=== PATIENT | male | born 1985 | race Caucasian/White ===

== ENCOUNTER 2017-05-30 17:52 | Emergency (ER) | payer OTHER ==
[~2017-05-30] VITALS: Ht 180.3 cm; Wt 77.3 kg
[2017-05-30 18:10] VITALS: BP 144/111
--- NOTE | 2017-05-30 18:24 | NUR ---
PT AA&OX4, RR EVEN/UNLABORED, BL LUNG SOUNDS CLEAR; PT TO LOBBY AWAITING OPEN BED.
--- NOTE | 2017-05-30 19:35 | NUR ---
LEAVE, TO SEE PMD IN MORNING,PATIENT LEFT WITHOUT BEING SEEN BY DR. CHENG. NO FURTHER CARE PROVIDED FOR PATIENT.
--- NOTE | 2017-05-30 21:30 | NUR ---
PATIENT RETURNED BACK , WITH VOMITING.
--- NOTE | 2017-05-30 22:00 | NUR ---
PATIENT LEFT, TO SEE PMD IN AM, PATIENT LEFT WITHOUT BEING SEEN BY DR. CHENG. NO FURTHER CARE PROVIDED FOR PATIENT.
== END 2017-05-30 22:00 | disposition left against medical advice (07) ==
LOC: MED 17:52
DX: R06.02 Shortness of breath (principal); Z53.21 Procedure and treatment not carried out due to patient leaving prior to being seen by health care provider
CPT/HCPCS: 36415; 87804; 99281

== ENCOUNTER 2020-01-31 19:05 | Emergency (ER) | payer MEDICAID, OTHER ==
[~2020-01-31] VITALS: Ht 180.3 cm; Wt 88.5 kg
[2020-01-31 19:20] VITALS: BP 146/101
--- NOTE | 2020-01-31 19:20 | NUR ---
34 Y/O MALE BIBA FOR ABDOMINAL PAIN, AND CRAMPS X 1 DAY. 10/10 PAIN. ALSO C/O NAUSEA, VOMITING X 1 DAY. A&O X4, R/R EQUAL, AND UNLABORED. VSS, TACHYCARDIC. STATES HE BELIEVES HE IS DEHYDRATED. PT DENIES INJURY/ TRAUMA TO ABDOMEN, SOB, COUGH, DIARRHEA. C/O BODY CRAMPS THROUGHOUT BODY, AND CANNOT STAND LAY DOWN, WANTS TO STAND ONLY. SIDE RAIL X1, BED IN LOW POSITION, WILL CONTINUE TO MONITOR. ALLERGY: DEMETRI DENIES PMH
--- NOTE | 2020-01-31 19:20 | NUR ---
PT AMBUALTED TO BED 7 WITH STEADY GAIT.
[2020-01-31] MEDS: NACL 0.9% 1,000 ML IV ONE ×2 (19:52→21:05)
[2020-01-31] MEDS: LORazepam 2 MG/ML VIAL IVP ONE (19:53)
[2020-01-31] MEDS: ONDANSETRON 4 MG/2 ML VIAL IVP ONE (19:54)
[2020-01-31 20:00] LABS: HEMATOCRIT 52.7 % (36-52); HEMOGLOBIN 18.2 g/dL (12.0-18.0); MEAN CORPUSCULAR HEMOGLOBIN 33 pg (27-31); MEAN CORPUSCULAR HGB CONC 35 g/dL (33-37); MEAN CORPUSCULAR VOLUME 94.7 fL (80-94); PLATELET COUNT (AUTO) 415 K/uL (140-450); RED BLOOD CELL COUNT(AUTO) 5.56 MIL/uL (4.20-6.10); RED CELL DISTRIBUTION WIDTH 13.2 % (11.6-13.7); WHITE BLOOD COUNT (AUTO) 17.3 K/uL (4.8-10.8)
[2020-01-31 20:16] LABS: LYMPHOCYTES % (MANUAL) 18 % (20-46); MONOCYTES % (MANUAL) 6 % (5-12)
[2020-01-31 20:18] LABS: ALBUMIN 6.2 g/dL (3.4-5.0); ANION GAP 30.4 (8-16); CARBON DIOXIDE 15.9 mmol/L (21-32); POTASSIUM 4.3 mmol/L (3.5-5.1); TOTAL BILIRUBIN 1.3 mg/dL (0.0-1.0)
[2020-01-31 20:36] LABS: CREATININE 4.2 mg/dL (0.6-1.3)
--- NOTE | 2020-01-31 20:37 | NUR ---
RECIVED CRITICAL LAB REPORT FORM ANUPAM - CREATINE 4.2. DIETER MADE AWARE.
[2020-01-31 21:11] LABS: CKMB RELATIVE INDEX 0.5 (0.0-2.5); CREATINE KINASE MB 2.1 ng/mL (0-3.6)
[2020-01-31] MEDS ORDERED: HYDROcodone/APAP 7.5/325 MG 1 TAB PO PRN (21:25)
[2020-01-31] MEDS ORDERED: ONDANSETRON 4 MG/2 ML VIAL IM/IVP PRN (21:25)
[2020-01-31] MEDS ORDERED: ZOLPIDEM 5 MG TAB PO PRN (21:25)
[2020-01-31] MEDS ORDERED: guaiFENesin DM 200/20 MG-10 ML 10 ML UDC PO PRN (21:25)
[2020-01-31] MEDS ORDERED: POTASSIUM CHLORIDE 10 MEQ TABER PO PRN (21:25)
[2020-01-31] MEDS ORDERED: DOCUSATE SODIUM 100 MG GELCAP PO PRN (21:25)
[2020-01-31] MEDS ORDERED: ACETAMINOPHEN 325 MG TAB PO PRN (21:25)
[2020-01-31] MEDS ORDERED: NACL 0.9% 1,000 ML IV SCH (21:25)
[2020-01-31 21:38] LABS: MAGNESIUM 2.6 mg/dL (1.8-2.4); PHOSPHORUS 4.4 mg/dL (2.5-4.9)
[2020-01-31 21:43] LABS: BARBITURATE, URINE NEGATIVE ng/ml (NEG <=200); BENZODIAZEPINE, URINE NEGATIVE ng/mL (NEG <=200); CANNABINOID, URINE POSITIVE ng/mL (NEG <=50); COCAINE, URINE NEGATIVE ng/mL (NEG <=300); OPIATE, URINE NEGATIVE ng/mL (NEG <=2000); PHENCYCLIDINE SCREEN,URINE NEGATIVE ng/mL (NEG <=25)
[2020-01-31 21:50] LABS: APPEARANCE,URINE CLEAR (CLEAR); BILIRUBIN,URINE 2+ (NEGATIVE); BLOOD, URINE 2+ (NEGATIVE); COLOR,URINE YELLOW (YELLOW); LEUKOCYTE ESTERASE ,URINE NEGATIVE (NEGATIVE); NITRITE, URINE NEGATIVE (NEGATIVE); PH,URINE 5.5 (5.0-9.0); UGLUCOSE NEGATIVE (NEGATIVE)
[2020-01-31 22:16] LABS: PROTHROMBIN TIME 10.4 secs (10.8-13.4)
[2020-01-31 22:17] LABS: WBC,URINE 0-5 /HPF (0-5)
[2020-01-31 22:18] LABS: FINE GRANULAR CASTS,URINE 0-10 /LPF (None Seen); URINE AMORPHOUS URATE 2+ /HPF (None Seen)
[2020-01-31 22:20] VITALS: BP 120/64
--- NOTE | 2020-01-31 22:20 | NUR ---
Patient does not wish to proceed with medical care recommended by DIETER GATES. Patient given information related to possible complications, up to and including , which could occur as a result of leaving hospital at this time. Patient verbalizes understanding of risks involved leaving against medical advice. Patient has signed AMA form.
[2020-01-31 22:33] LABS: CHOL/HDL RATIO 2.1 (1-4.5); FREE T4 (FREE THYROXINE) 1.62 ng/dL (0.76-1.46); THYROID STIMULATING HORMONE 6.53 uIU/mL (0.34-3.74)
[2020-02-01] MEDS ORDERED: PANTOPRAZOLE 40 MG TABEC PO SCH (09:00)
[2020-02-02 13:43] LABS: T4 (THYROXINE) 12.6 ug/dL (4.5 - 12.0)
[2020-02-03 13:45] LABS: BASOPHILS # (AUTO) 0.1 K/uL (0.00-0.22); EOSINOPHILS # (AUTO) 0.2 K/uL (0-0.4); EOSINOPHILS % (AUTO) 3.2 % (0.0-4.0); HEMATOCRIT 41.3 % (36-52); HEMOGLOBIN 13.6 g/dL (12.0-18.0); LYMPHOCYTES # (AUTO) 1.9 K/uL (2.0-11.5); LYMPHOCYTES % (AUTO) 28.6 % (20.5-51.1); MEAN CORPUSCULAR HEMOGLOBIN 32 pg (27-31); MEAN CORPUSCULAR HGB CONC 33 g/dL (33-37); MEAN CORPUSCULAR VOLUME 97.2 fL (80-94); MONOCYTES # (AUTO) 0.8 K/uL (0.8-1.0); MONOCYTES % (AUTO) 11.3 % (1.7-9.3); NEUTROPHILS # (AUTO) 3.8 K/uL (1.8-7.7); NEUTROPHILS % (AUTO) 55.9 % (42.2-75.2); PLATELET COUNT (AUTO) 257 K/uL (140-450); RED BLOOD CELL COUNT(AUTO) 4.25 MIL/uL (4.20-6.10); RED CELL DISTRIBUTION WIDTH 12.9 % (11.6-13.7); WHITE BLOOD COUNT (AUTO) 6.7 K/uL (4.8-10.8)
== END 2020-01-31 22:11 | disposition left against medical advice (07) ==
LOC: MED 19:05 → UNDOADMIN 21:20 → MTU 21:20 → MED 22:11
DX: M62.82 Rhabdomyolysis (principal); E86.0 Dehydration; N19 Unspecified kidney failure; F17.210 Nicotine dependence, cigarettes, uncomplicated; Z91.018 Allergy to other foods
CPT/HCPCS: 36415; 36600; 71045; 80053; 80061; 80305; 81001; 81002; 82150; 82550; 82553; 82803; 83036; 83690; 83735; 83880; 84100; 84436; 84439; 84443; 84479; 84484; 85025; 85610; 85730; 87086; 96361; 96374; 96375; 99284; J2060; J2405; J7030; Q0092; 96376; J0696; J7060

== ENCOUNTER 2020-02-01 12:22 | Emergency (ER) | payer MEDICAID ==
[~2020-02-01] VITALS: Ht 180.3 cm; Wt 83.9 kg
[2020-02-01 12:30] VITALS: BP 151/105
--- NOTE | 2020-02-01 12:37 | NUR ---
34 y/o male presents to ED for follow up after leaving [facility] AMA last night. Pt states he was having muscle cramps and body pain yesterday. Denies pain at this time. Pt states he feels dehydrated and has generalized weakness. Awake and alert positioned for comfort. VSS
[2020-02-01] MEDS ORDERED: NACL 0.9% 500 ML IV SCH (13:11)
--- NOTE | 2020-02-01 13:13 | NUR ---
Patient ambulated to restroom to provide UA.
[2020-02-01 13:31] LABS: BASOPHILS % (AUTO) 0.4 % (0.0-2.0); EOSINOPHILS # (AUTO) 0.1 K/uL (0-0.4); HEMATOCRIT 43.3 % (36-52); HEMOGLOBIN 14.9 g/dL (12.0-18.0); LYMPHOCYTES # (AUTO) 2.8 K/uL (2.0-11.5); LYMPHOCYTES % (AUTO) 29.4 % (20.5-51.1); MEAN CORPUSCULAR HEMOGLOBIN 33 pg (27-31); MEAN CORPUSCULAR HGB CONC 34 g/dL (33-37); MEAN CORPUSCULAR VOLUME 94.8 fL (80-94); MONOCYTES # (AUTO) 1.1 K/uL (0.8-1.0); MONOCYTES % (AUTO) 12.2 % (1.7-9.3); NEUTROPHILS # (AUTO) 5.3 K/uL (1.8-7.7); PLATELET COUNT (AUTO) 306 K/uL (140-450); RED BLOOD CELL COUNT(AUTO) 4.57 MIL/uL (4.20-6.10); RED CELL DISTRIBUTION WIDTH 12.8 % (11.6-13.7); WHITE BLOOD COUNT (AUTO) 9.4 K/uL (4.8-10.8)
--- NOTE | 2020-02-01 13:38 | NUR ---
X-Ray at bedside.
--- NOTE | 2020-02-01 13:40 | NUR ---
Ultrasound at bedside
[2020-02-01 13:47] LABS: ALBUMIN 4.3 g/dL (3.4-5.0); ANION GAP 16.2 (8-16); CARBON DIOXIDE 22.5 mmol/L (21-32); CREATININE 1.6 mg/dL (0.6-1.3); POTASSIUM 3.7 mmol/L (3.5-5.1)
[2020-02-01 13:51] LABS: APPEARANCE,URINE CLEAR (CLEAR); BILIRUBIN,URINE NEGATIVE (NEGATIVE); BLOOD, URINE NEGATIVE (NEGATIVE); COLOR,URINE YELLOW (YELLOW); LEUKOCYTE ESTERASE ,URINE NEGATIVE (NEGATIVE); NITRITE, URINE NEGATIVE (NEGATIVE); UGLUCOSE NEGATIVE (NEGATIVE)
[2020-02-01 13:54] LABS: PROTHROMBIN TIME 10.4 secs (10.8-13.4)
[2020-02-01] MEDS ORDERED: NACL 0.9% 500 ML IV ONE (14:00)
--- NOTE | 2020-02-01 14:08 | NUR ---
second 500ml bolus of nacl started
[2020-02-01 14:44] VITALS: BP 144/99
--- NOTE | 2020-02-01 14:44 | NUR ---
Patient discharged with v/s stable. Written and verbal after care instructions given and explained. Patient verbalized understanding. Ambulatory with steady gait. All questions addressed prior to discharge. Advised to follow up with PMD.
== END 2020-02-01 14:44 | disposition home or self-care (01) ==
LOC: MED 12:22
DX: N28.89 Other specified disorders of kidney and ureter (principal); F17.210 Nicotine dependence, cigarettes, uncomplicated; F12.10 Cannabis abuse, uncomplicated; K29.70 Gastritis, unspecified, without bleeding; Z91.02 Food additives allergy status
CPT/HCPCS: 36415; 71045; 76770; 80053; 81003; 83605; 83874; 83880; 84484; 85025; 85610; 85730; 87040; 87086; 93005; 96360; 96361; 99285; J7030; Q0092

== ENCOUNTER 2020-02-03 09:01 | Emergency (ER) | payer MEDICAID ==
[~2020-02-03] VITALS: Ht 180.3 cm; Wt 83.9 kg
[2020-02-03 09:02] VITALS: BP 143/92
--- NOTE | 2020-02-03 09:10 | NUR ---
pt ambulated to room 7
--- NOTE | 2020-02-03 09:13 | NUR ---
dr mcmahon at bedside evaluating pt.
--- NOTE | 2020-02-03 09:20 | NUR ---
C/O RIGHT BACK PAIN X 4 MONTHS. DENIES DYSURIA. SEEN HERE 02/01/20 FOR KIDNEY DISEASE,PT AOX4 AFIBRILE , AMBULATORY WITH STEADY GAIT , PINK PALPEBRAL CONJUNCTIVE , ANICTERIC SCLERA , SCE, FLAT SOFT ABDOMEN . MED HX: FATTY LIVER, GASTRITIS
--- NOTE | 2020-02-03 09:26 | NUR ---
labs at bedside
--- NOTE | 2020-02-03 09:44 | NUR ---
pt ambulated outside ED to his car to get something pt stated , ask permission with charge nurse louis .
--- NOTE | 2020-02-03 09:55 | NUR ---
pt back in room.
[2020-02-03 10:16] LABS: ALBUMIN 3.9 g/dL (3.4-5.0); CARBON DIOXIDE 26.1 mmol/L (21-32); CREATININE 0.8 mg/dL (0.6-1.3); PHOSPHORUS 2.6 mg/dL (2.5-4.9); POTASSIUM 4.1 mmol/L (3.5-5.1)
--- NOTE | 2020-02-03 10:25 | NUR ---
dr mcmahon at bedside reevaluating pt.
[2020-02-03 10:29] VITALS: BP 143/89
== END 2020-02-03 10:30 | disposition home or self-care (01) ==
LOC: MED 09:01
DX: N17.9 Acute kidney failure, unspecified (principal); F17.200 Nicotine dependence, unspecified, uncomplicated; Z00.00 Encounter for general adult medical examination without abnormal findings; Z91.018 Allergy to other foods; Z71.6 Tobacco abuse counseling
CPT/HCPCS: 36415; 82040; 82435; 82565; 82947; 84100; 84132; 84295; 84520; 99283

== ENCOUNTER 2020-12-03 12:26 | Emergency (ER) | payer SELFPAY ==
[~2020-12-03] VITALS: Ht 180.3 cm; Wt 85.3 kg
[2020-12-03 12:30] VITALS: BP 162/97
[2020-12-03] MEDS ORDERED: ONDANSETRON 4 MG ODT PO ONE (13:10)
[2020-12-03] MEDS ORDERED: KETOROLAC 30 MG/ML VIAL IM ONE (13:10)
[2020-12-03 13:29] VITALS: BP 162/97
[2020-12-03] MEDS ORDERED: ATA25 PO (20:30)
== END 2020-12-03 13:30 | disposition home or self-care (01) ==
LOC: MED 12:26
DX: R07.9 Chest pain, unspecified (principal); F41.1 Generalized anxiety disorder; F17.210 Nicotine dependence, cigarettes, uncomplicated; Z91.018 Allergy to other foods
CPT/HCPCS: 81002; 93005; 96372; 99283; J1885; Q0162

== ENCOUNTER 2020-12-03 18:29 | Emergency (ER) | payer SELFPAY ==
[~2020-12-03] VITALS: Ht 180.3 cm; Wt 85.3 kg
[2020-12-03 18:40] VITALS: BP 150/112
--- NOTE | 2020-12-03 19:23 | NUR ---
AMBULATORY TO BED
--- NOTE | 2020-12-03 19:26 | NUR ---
ekg performed at bedside. ekg reads sinus rhythm @ 67
[2020-12-03 19:30] LABS: BASOPHILS % (AUTO) 0.4 % (0.0-2.0); EOSINOPHILS # (AUTO) 0.1 K/uL (0-0.4); EOSINOPHILS % (AUTO) 0.7 % (0.0-4.0); HEMATOCRIT 43.6 % (36-52); LYMPHOCYTES % (AUTO) 23.9 % (20.5-51.1); MEAN CORPUSCULAR HEMOGLOBIN 33 pg (27-31); MEAN CORPUSCULAR HGB CONC 34 g/dL (33-37); MEAN CORPUSCULAR VOLUME 94.7 fL (80-94); MONOCYTES # (AUTO) 0.6 K/uL (0.8-1.0); MONOCYTES % (AUTO) 7.5 % (1.7-9.3); NEUTROPHILS # (AUTO) 5.6 K/uL (1.8-7.7); NEUTROPHILS % (AUTO) 67.5 % (42.2-75.2); PLATELET COUNT (AUTO) 315 K/uL (140-450); RED CELL DISTRIBUTION WIDTH 12.4 % (11.6-13.7); WHITE BLOOD COUNT (AUTO) 8.3 K/uL (4.8-10.8)
[2020-12-03 19:49] LABS: ALBUMIN 4.6 g/dL (3.4-5.0); ANION GAP 13.4 (8-16); CARBON DIOXIDE 27.3 mmol/L (21-32); POTASSIUM 3.7 mmol/L (3.5-5.1); TOTAL BILIRUBIN 1.1 mg/dL (0.0-1.0)
[2020-12-03] MEDS ORDERED: ATA25 PO (20:30)
[2020-12-03] MEDS ORDERED: KETOROLAC 30 MG/ML VIAL IM ONE (20:35)
[2020-12-03] MEDS ORDERED: HYDROXYZINE HYDROCHLORIDE 25 MG TAB ONE (20:47)
--- NOTE | 2020-12-03 20:49 | NUR ---
PT MOVED TO CHAIR C
[2020-12-03 21:00] VITALS: BP 150/112
--- NOTE | 2020-12-03 21:00 | NUR ---
Patient discharged with v/s stable. Written and verbal after care instructions given and explained. Patient alert, oriented and verbalized understanding of instructions. Ambulatory with steady gait. All questions addressed prior to discharge. ID band removed. Patient advised to follow up with PMD. Rx of ATARAX HCL given. Patient educated on indication of medication including possible reaction and side effects. Opportunity to ask questions provided and answered. Patient reports he will be walking home,lives next to the hospital.
[2020-12-04] MEDS ORDERED: HYDROXYZINE HYDROCHLORIDE 25 MG TAB PO SCH (09:00)
== END 2020-12-03 21:00 | disposition home or self-care (01) ==
LOC: MED 18:29
DX: F41.9 Anxiety disorder, unspecified (principal); F17.210 Nicotine dependence, cigarettes, uncomplicated; F12.10 Cannabis abuse, uncomplicated; Z91.018 Allergy to other foods
CPT/HCPCS: 36415; 71045; 80053; 84484; 85025; 93005; 96372; 99285; J1885

== ENCOUNTER 2021-08-07 19:52 | Emergency (ER) | payer MEDICAID ==
[~2021-08-07] VITALS: Ht 88.9 cm; Wt 83.9 kg
[~2021-08-07 19:52] MED LIST: ATA25 PO
--- NOTE | 2021-08-07 20:15 | NUR ---
called to triage, no answer
[2021-08-07 20:35] VITALS: BP 160/127
--- NOTE | 2021-08-07 22:35 | NUR ---
VS RECHECKED. PT NOW ADMITS TO METH USE AND ETOH USE. LAST DRINK AT 1000
--- NOTE | 2021-08-07 22:58 | NUR ---
PT AMBULATED TO BED 01.
[2021-08-07] MEDS ORDERED: LORazepam 1 MG TAB PO ONE (23:05)
[2021-08-07] MEDS ORDERED: NACL 0.9% 1,000 ML IV ONE (23:05)
[2021-08-07] MEDS ORDERED: LORazepam 2 MG/ML VIAL IVP ONE (23:05)
--- NOTE | 2021-08-07 23:06 | NUR ---
Patient BIB by family/friend from home. C/O Anxiety x today. Patient reported, had anxiety today, drinking alcohol x 3 days and smoke "weed" x today. A/O,X4, dizziness, no pain, place patient on manager monitoring and pulse ox.
[2021-08-07 23:27] LABS: BASOPHILS # (AUTO) 0.4 K/uL (0.00-0.22); BASOPHILS % (AUTO) 4.2 % (0.0-2.0); EOSINOPHILS # (AUTO) 0.1 K/uL (0-0.4); EOSINOPHILS % (AUTO) 1.4 % (0.0-4.0); HEMATOCRIT 47.4 % (36-52); HEMOGLOBIN 16.5 g/dL (12.0-18.0); LYMPHOCYTES # (AUTO) 2.2 K/uL (2.0-11.5); LYMPHOCYTES % (AUTO) 24.7 % (20.5-51.1); MEAN CORPUSCULAR HEMOGLOBIN 32 pg (27-31); MEAN CORPUSCULAR HGB CONC 35 g/dL (33-37); MEAN CORPUSCULAR VOLUME 93.2 fL (80-94); MONOCYTES # (AUTO) 0.9 K/uL (0.8-1.0); MONOCYTES % (AUTO) 9.6 % (1.7-9.3); NEUTROPHILS # (AUTO) 5.4 K/uL (1.8-7.7); NEUTROPHILS % (AUTO) 60.1 % (42.2-75.2); PLATELET COUNT (AUTO) 341 K/uL (140-450); RED BLOOD CELL COUNT(AUTO) 5.09 MIL/uL (4.20-6.10); RED CELL DISTRIBUTION WIDTH 13.4 % (11.6-13.7)
[2021-08-07 23:39] LABS: ALBUMIN 4.4 g/dL (3.4-5.0); ANION GAP 17.1 (8-16); CARBON DIOXIDE 22.8 mmol/L (21-32); CREATININE 0.9 mg/dL (0.6-1.3); POTASSIUM 3.9 mmol/L (3.5-5.1); TOTAL BILIRUBIN 0.9 mg/dL (0.0-1.0)
--- NOTE | 2021-08-07 23:56 | NUR ---
COVID-19 (rapid) swabs collected and sent to lab.
[2021-08-08 00:59] LABS: BARBITURATE, URINE NEGATIVE ng/ml (NEG <=200); BENZODIAZEPINE, URINE POSITIVE ng/mL (NEG <=200); CANNABINOID, URINE POSITIVE ng/mL (NEG <=50); COCAINE, URINE NEGATIVE ng/mL (NEG <=300); OPIATE, URINE NEGATIVE ng/mL (NEG <=2000); PHENCYCLIDINE SCREEN,URINE NEGATIVE ng/mL (NEG <=25)
--- NOTE | 2021-08-08 01:07 | NUR ---
Patient appears to be resting comfortably in bed. Vital Signs within normal limits. Respirations even and unlabored.
--- NOTE | 2021-08-08 01:50 | NUR ---
Re-check BP 171/101- Dr. Mckinnon notified.
[2021-08-08 02:10] VITALS: BP 171/101
== END 2021-08-08 02:10 | disposition home or self-care (01) ==
LOC: MED 19:52
DX: F15.129 Other stimulant abuse with intoxication, unspecified (principal); Z20.822 Contact with and (suspected) exposure to COVID-19; F10.10 Alcohol abuse, uncomplicated; F41.9 Anxiety disorder, unspecified; Z91.018 Allergy to other foods; Z79.899 Other long term (current) drug therapy; Y90.0 Blood alcohol level of less than 20 mg/100 ml
CPT/HCPCS: 36415; 80053; 80305; 84484; 85025; 87426; 93005; 96361; 96374; 99285; G0482; J2060; J7030

== ENCOUNTER 2021-08-21 08:22 | Emergency (ER) | payer MEDICAID ==
[~2021-08-21] VITALS: Ht 180.3 cm; Wt 86.2 kg
[2021-08-21 08:32] VITALS: BP 160/98
--- NOTE | 2021-08-21 08:45 | NUR ---
35 Y/O M AMBULATED TO BED 3 WITH STEADY GAIT, C/O ANXIETY AFTER DDRINKING FOR THE PAST 3 DAYS, LAST DRINK LAST NIGHT AT 2200. NKDA PMH: ALLERGIES FOOD: AVOCADO
--- NOTE | 2021-08-21 09:06 | NUR ---
DR WATSON AT BEDSIDE FOR MSE
[2021-08-21] MEDS ORDERED: diazePAM 5 MG TAB PO ONE (09:10)
[2021-08-21] MEDS ORDERED: HYDR-635 PO (10:00)
[2021-08-21 10:05] VITALS: BP 160/100
--- NOTE | 2021-08-21 10:05 | NUR ---
Patient discharged with v/s stable. Written and verbal after care instructions given and explained. Patient alert, oriented and verbalized understanding of instructions. Ambulatory with steady gait. All questions addressed prior to discharge. ID band removed. Patient advised to follow up with PMD. Rx of HYDROXYZINE given. Patient educated on indication of medication including possible reaction and side effects. Opportunity to ask questions provided and answered.
== END 2021-08-21 10:05 | disposition home or self-care (01) ==
LOC: MED 08:22
DX: F10.239 Alcohol dependence with withdrawal, unspecified (principal); F41.1 Generalized anxiety disorder; F12.90 Cannabis use, unspecified, uncomplicated; Z79.899 Other long term (current) drug therapy; Z91.018 Allergy to other foods
CPT/HCPCS: 93005; 99283

== ENCOUNTER 2021-10-25 16:09 | Emergency (ER) | payer MEDICAID, OTHER ==
[~2021-10-25] VITALS: Ht 180.3 cm; Wt 89.9 kg
[~2021-10-25 16:09] MED LIST changes: +HYDR-635 PO
[2021-10-25 16:12] VITALS: BP 141/78
--- NOTE | 2021-10-25 16:20 | NUR ---
Anup salinas in [facility] - 10/25/21 at 1625 by MED1 PT W/C TO BED 4.
--- NOTE | 2021-10-25 16:25 | NUR ---
PT W/C ASSISTED TO BED 4.
--- NOTE | 2021-10-25 16:28 | NUR ---
35 Y/O MALE C/O LEFT KNEE PAIN 01/07 DESCRIBES ACHING S/P FALL X 2 DAYS AT HOME. PT STATES HE WAS AT HOME WORKING AND FELL. DENIES HEAD INJURY. DENIES LOC. DENIES FEVER/CHILLS. DENIES N/V/D. DENIES PMH NKA
[2021-10-25] MEDS ORDERED: KETOROLAC 30 MG/ML VIAL IM ONE (16:30)
--- NOTE | 2021-10-25 16:31 | NUR ---
MANAGER ACTIVITIES AT PT BEDSIDE.
[2021-10-25] MEDS ORDERED: IBUP-2213 PO (17:22)
[2021-10-25] MEDS ORDERED: HYDR-5080 PO (17:22)
--- NOTE | 2021-10-25 17:50 | NUR ---
Patient discharged with v/s stable. Written and verbal after care instructions given FOR RICE THERAPY, CONTUSION, KNEE SPRAIN, AND KNEE IMMOBILIZER and explained. Patient alert, oriented and verbalized understanding of instructions. Ambulatory with steady gait. All questions addressed prior to discharge. ID band removed. Patient advised to follow up with PMD. Rx of NORCO AND IBUPROFEN given. Patient educated on indication of medication including possible reaction and side effects. Opportunity to ask questions provided and answered.
--- NOTE | 2021-10-25 17:50 | NUR ---
PT PLACED IN LEFT KNEE ORTHO-IMMOBILIZOR, CMS WNL BEFORE AND AFTER AND PT STATED THAT THEY TOLERATED KNEE BRACE WELL. PT ALSO GIVEN CRUTCHES THAT WERE ADJUSTED TO PT'S SIZE AND HEIGHT, PT STATED THAT THEY ALREADY KNOW HOW TO USE CRUTCHES AND SHOWED PROPER DEMONSTRATION ON HOW TO US THEM. PT STATED THEY FELT COMFORTABLE WHILE USING CRUTCHES AND HAD NO FURTHER QUESTIONS. DIETER AND RN NOTIFIED.
== END 2021-10-25 17:50 | disposition home or self-care (01) ==
LOC: MED 16:09
DX: S83.92XA Sprain of unspecified site of left knee, initial encounter (principal); F17.200 Nicotine dependence, unspecified, uncomplicated; Z72.89 Other problems related to lifestyle; W18.30XA Fall on same level, unspecified, initial encounter; Y93.89 Activity, other specified; Y92.89 Other specified places as the place of occurrence of the external cause; Y99.8 Other external cause status
CPT/HCPCS: 29505; 73562; 96372; 99283; J1885; 99284

== ENCOUNTER 2021-11-02 10:40 | Emergency (ER) | payer OTHER ==
[~2021-11-02] VITALS: Ht 180.3 cm; Wt 86.2 kg
[~2021-11-02 10:40] MED LIST changes: +HYDR-5080 PO; +IBUP-2213 PO
[2021-11-02 10:47] VITALS: BP 134/87
--- NOTE | 2021-11-02 10:47 | NUR ---
Patient ambulated with steady gait to bed 8.
[2021-11-02] MEDS ORDERED: LORazepam 2 MG/ML VIAL IVP ONE (11:00)
--- NOTE | 2021-11-02 11:20 | NUR ---
35 Y/O MALE BIB SELF C/O OF HIGH ANXIETY, SEEN APPEARANCE IN [employer],CLOTHES UNKEMPT AND PANTS WITH PAINT OVER HIM. STATED THAT HE WAS DRINKING 18 BEERS A DAY FOR 4-5 DAYS AND DECIDED TO STOP. NOW FEELING LIKE HE'S OUT OF BREATH AND PACING BACK AND FORTH. NKYanelis PMH:DENIED
[2021-11-02 11:28] LABS: BASOPHILS % (AUTO) 0.7 % (0.0-2.0); EOSINOPHILS # (AUTO) 0.2 K/uL (0-0.4); HEMOGLOBIN 14.9 g/dL (12.0-18.0); LYMPHOCYTES # (AUTO) 1.9 K/uL (2.0-11.5); LYMPHOCYTES % (AUTO) 35.2 % (20.5-51.1); MEAN CORPUSCULAR HEMOGLOBIN 32 pg (27-31); MEAN CORPUSCULAR HGB CONC 34 g/dL (33-37); MEAN CORPUSCULAR VOLUME 94.4 fL (80-94); MONOCYTES # (AUTO) 0.4 K/uL (0.8-1.0); MONOCYTES % (AUTO) 7.1 % (1.7-9.3); PLATELET COUNT (AUTO) 341 K/uL (140-450); RED BLOOD CELL COUNT(AUTO) 4.65 MIL/uL (4.20-6.10); RED CELL DISTRIBUTION WIDTH 13.3 % (11.6-13.7); WHITE BLOOD COUNT (AUTO) 5.5 K/uL (4.8-10.8)
[2021-11-02 11:59] LABS: CARBON DIOXIDE 24.5 mmol/L (21-32); CREATININE 0.8 mg/dL (0.6-1.3); TOTAL BILIRUBIN 0.5 mg/dL (0.0-1.0)
[2021-11-02 12:04] LABS: ANION GAP 14.7 (8-16); POTASSIUM 4.2 mmol/L (3.5-5.1)
[2021-11-02] MEDS ORDERED: LIB25 PO (12:55)
[2021-11-02] MEDS ORDERED: chlordiazePOXIDE 25 MG CAP PO SCH (13:00)
[2021-11-02 13:08] VITALS: BP 146/91
--- NOTE | 2021-11-02 13:11 | NUR ---
Patient discharged with v/s stable. Written and verbal after care instructions given and explained. Patient alert, oriented and verbalized understanding of instructions. Ambulatory with steady gait. All questions addressed prior to discharge. ID band removed. Patient advised to follow up with PMD. Rx of LIBRIUM given. Patient educated on indication of medication including possible reaction and side effects. Opportunity to ask questions provided and answered.
== END 2021-11-02 13:11 | disposition home or self-care (01) ==
LOC: MED 10:40
DX: F10.239 Alcohol dependence with withdrawal, unspecified (principal); Y90.9 Presence of alcohol in blood, level not specified
CPT/HCPCS: 36415; 80053; 83690; 85025; 96374; 99283; J2060

== ENCOUNTER 2022-02-12 16:27 | Emergency (ER) | payer OTHER ==
[~2022-02-12] VITALS: Ht 180.3 cm; Wt 83.9 kg
[~2022-02-12 16:27] MED LIST changes: +LIB25 PO
[2022-02-12 16:48] VITALS: BP 158/120
--- NOTE | 2022-02-12 17:00 | NUR ---
PT AMB TO BED 5.
--- NOTE | 2022-02-12 17:05 | NUR ---
UA SENT TO LAB
--- NOTE | 2022-02-12 17:12 | NUR ---
36 Y/O M BIB SELF C/O CHEST PAIN, SHAKING X 2 DAYS. PT USED METH 2 DAYS AGO & DRINKING X TODAY. NKA PMH: DRUG ABUSED, ALCOHOLIC, ANXIETY
[2022-02-12] MEDS ORDERED: OMEP40EC24 PO (18:02)
[2022-02-12] MEDS ORDERED: ATA25 PO (18:02)
[2022-02-12] MEDS ORDERED: LORazepam 1 MG TAB ONE (18:08)
[2022-02-12] MEDS ORDERED: LORazepam 1 MG TAB PO ONE (18:10)
[2022-02-12 18:18] VITALS: BP 154/104
--- NOTE | 2022-02-12 18:19 | NUR ---
Patient discharged with v/s stable. Written and verbal after care instructions given and explained. Patient alert, oriented and verbalized understanding of instructions. Ambulatory with steady gait. All questions addressed prior to discharge. ID band removed. Patient advised to follow up with PMD. Rx of HYDROXYZINE HYDROCHLORIDE, OMEPRAZOLE given. Opportunity to ask questions provided and answered.
== END 2022-02-12 18:19 | disposition home or self-care (01) ==
LOC: MED 16:27
DX: F41.9 Anxiety disorder, unspecified (principal); R07.9 Chest pain, unspecified; F12.10 Cannabis abuse, uncomplicated; F15.10 Other stimulant abuse, uncomplicated; Z72.89 Other problems related to lifestyle
CPT/HCPCS: 93005; 99283

== ENCOUNTER 2022-03-17 14:22 | Emergency (ER) | payer OTHER ==
[~2022-03-17] VITALS: Ht 180.3 cm; Wt 86.2 kg
[~2022-03-17 14:22] MED LIST changes: +OMEP40EC24 PO
[2022-03-17 14:35] VITALS: BP 159/114
--- NOTE | 2022-03-17 14:42 | NUR ---
PT AMB TO BED 8.
[2022-03-17] MEDS ORDERED: diazePAM 5 MG TAB PO ONE ×2 (15:10→16:35)
--- NOTE | 2022-03-17 15:41 | NUR ---
36 y/o male bib self, c/o etoh withdrawals that started today around 0400. states he has s/s of moderate and persistent shakiness, anxious, and paranoid with associated nausea, vomiting, and difficulty breathing. pt states he has been trying to quit drinking, but has been relapsed for 4 days. a&o x4 with even and steady gait. patient positioned for comfort. hob elevated. bed down. ermd made aware of pt. pmh: heavy etoh abuse allergy: divalproex sodium, quetiapine med: denies
[2022-03-17] MEDS ORDERED: diazePAM 5 MG TAB ONE (17:37)
--- NOTE | 2022-03-17 17:47 | NUR ---
pt states he is feeling decreased anxiety and nausea. pt resting in bed at this time.
[2022-03-17 18:55] VITALS: BP 136/87
== END 2022-03-17 18:55 | disposition home or self-care (01) ==
LOC: MED 14:22
DX: F10.239 Alcohol dependence with withdrawal, unspecified (principal); F41.9 Anxiety disorder, unspecified; Z79.899 Other long term (current) drug therapy
CPT/HCPCS: 81002; 99283

== ENCOUNTER 2022-04-26 12:37 | Emergency (ER) | payer OTHER ==
[~2022-04-26] VITALS: Ht 180.3 cm; Wt 88.5 kg
[2022-04-26 12:44] VITALS: BP 140/94
--- NOTE | 2022-04-26 13:00 | NUR ---
36/M WALKED IN C/O LOW BACK PAIN ONSET TODAY S/P RIDING SCOOTER AT A PARK. DENIES FALL OR TRAUMA TO BACK. DESCRIBES PAIN SHARP. PMH: DENIES
[2022-04-26] MEDS ORDERED: KETOROLAC 30 MG/ML VIAL IM ONE (14:55)
[2022-04-26] MEDS ORDERED: IBUP-2213 PO (15:33)
[2022-04-26] MEDS ORDERED: METH-1681 PO (15:33)
[2022-04-26] MEDS ORDERED: KETOROLAC 30 MG/ML VIAL ONE (16:27)
[2022-04-26 16:30] VITALS: BP 132/82
== END 2022-04-26 16:30 | disposition home or self-care (01) ==
LOC: MED 12:37
DX: S39.012A Strain of muscle, fascia and tendon of lower back, initial encounter (principal); Z79.899 Other long term (current) drug therapy; Z79.1 Long term (current) use of non-steroidal anti-inflammatories (NSAID); Z79.891 Long term (current) use of opiate analgesic; X58.XXXA Exposure to other specified factors, initial encounter; Y92.89 Other specified places as the place of occurrence of the external cause; Y93.89 Activity, other specified; Y99.8 Other external cause status
CPT/HCPCS: 72110; 96372; 99283; J1885

== ENCOUNTER 2022-08-13 13:17 | Emergency (ER) | payer OTHER ==
[~2022-08-13] VITALS: Ht 180.3 cm; Wt 88.0 kg
[~2022-08-13 13:17] MED LIST changes: +METH-1681 PO
--- NOTE | 2022-08-13 13:22 | NUR ---
CALLED X1. NO SHOW.
--- NOTE | 2022-08-13 13:30 | NUR ---
CALLED X2. NO SHOW.
[2022-08-13 14:13] VITALS: BP 164/121
[2022-08-13] MEDS ORDERED: LIB25 PO (14:50)
--- NOTE | 2022-08-13 15:16 | NUR ---
Patient discharged with v/s stable. Written and verbal after care instructions FOR ALCOHOL USE DISORDER given and explained. Patient alert, oriented and verbalized understanding of instructions. Ambulatory with steady gait. All questions addressed prior to discharge. ID band removed. Patient advised to follow up with PMD. Rx of LIBRIUM given. Opportunity to ask questions provided and answered.
== END 2022-08-13 15:16 | disposition home or self-care (01) ==
LOC: MED 13:17
DX: F10.10 Alcohol abuse, uncomplicated (principal); F41.9 Anxiety disorder, unspecified; F17.210 Nicotine dependence, cigarettes, uncomplicated; Z79.899 Other long term (current) drug therapy; Z79.1 Long term (current) use of non-steroidal anti-inflammatories (NSAID); Z79.891 Long term (current) use of opiate analgesic; Y90.9 Presence of alcohol in blood, level not specified
CPT/HCPCS: 99283

== ENCOUNTER 2022-12-09 19:53 | Emergency (ER) | payer OTHER ==
[~2022-12-09] VITALS: Ht 180.3 cm; Wt 90.7 kg
[2022-12-09 20:43] VITALS: BP 91/36; PULSE 106; RESP 20; TEMP 97.4; O2SAT 100
--- NOTE | 2022-12-09 20:50 | NUR ---
TO LOBBY FOLLOWING TRIAGE
[2022-12-09] MEDS ORDERED: NACL 0.9% 1,000 ML IV ONE ×2 (20:55→21:30)
[2022-12-09] MEDS ORDERED: ONDANSETRON 4 MG/2 ML VIAL IVP ONE (21:10)
[2022-12-09 21:13] LABS: BASOPHILS # (AUTO) 0.1 K/uL (0.00-0.22); BASOPHILS % (AUTO) 0.4 % (0.0-2.0); EOSINOPHILS % (AUTO) 0.1 % (0.0-4.0); HEMATOCRIT 53.4 % (36-52); HEMOGLOBIN 18.6 g/dL (12.0-18.0); LYMPHOCYTES # (AUTO) 2.5 K/uL (2.0-11.5); LYMPHOCYTES % (AUTO) 12.5 % (20.5-51.1); MEAN CORPUSCULAR HEMOGLOBIN 32 pg (27-31); MEAN CORPUSCULAR HGB CONC 35 g/dL (33-37); MONOCYTES # (AUTO) 1.9 K/uL (0.8-1.0); MONOCYTES % (AUTO) 9.2 % (1.7-9.3); NEUTROPHILS # (AUTO) 15.8 K/uL (1.8-7.7); NEUTROPHILS % (AUTO) 77.8 % (42.2-75.2); PLATELET COUNT (AUTO) 377 K/uL (140-450); RED CELL DISTRIBUTION WIDTH 13.7 % (11.6-13.7); WHITE BLOOD COUNT (AUTO) 20.3 K/uL (4.8-10.8)
[2022-12-09 21:16] LABS: ANION GAP 26.5 (8-16); CARBON DIOXIDE 21.4 mmol/L (21-32); POTASSIUM 4.9 mmol/L (3.5-5.1)
--- NOTE | 2022-12-09 21:20 | NUR ---
Patient is a 36/M who came in due to generalized weakness and body cramping since this PM associaated with nausea/vomiting, epigastric abdominal pain, 6/10, and chills. No fever noted. PMHx: Denies NKA
[2022-12-09 21:23] LABS: CREATININE 4.2 mg/dL (0.6-1.3)
[2022-12-09 21:25] VITALS: TEMP 97.4
[2022-12-09] MEDS ORDERED: KETOROLAC 30 MG/ML VIAL IVP ONE (21:30)
[2022-12-09] MEDS ORDERED: ONDA8TAB87 PO (21:37)
[2022-12-09 22:40] VITALS: BP 133/89; PULSE 97; RESP 14; O2SAT 99
== END 2022-12-09 22:40 | disposition home or self-care (01) ==
LOC: MED 19:53
DX: N17.9 Acute kidney failure, unspecified (principal); E86.0 Dehydration; R11.2 Nausea with vomiting, unspecified; F17.200 Nicotine dependence, unspecified, uncomplicated; Z79.899 Other long term (current) drug therapy; Z79.1 Long term (current) use of non-steroidal anti-inflammatories (NSAID)
CPT/HCPCS: 36415; 80048; 85025; 96361; 96374; 96375; 99284; J1885; J2405; J7030

== ENCOUNTER 2023-05-20 14:11 | Emergency (ER) | payer OTHER ==
[~2023-05-20] VITALS: Ht 180.3 cm; Wt 88.5 kg
[~2023-05-20 14:11] MED LIST changes: +ONDA8TAB87 PO
[2023-05-20 14:24] VITALS: BP 142/102; PULSE 118; RESP 20; TEMP 97.1; O2SAT 100
[2023-05-20 14:57] LABS: FLU A ANTIGEN negative (NEGATIVE)
[2023-05-20 14:58] LABS: FLU B ANTIGEN NEGATIVE (NEGATIVE)
[2023-05-20] MEDS ORDERED: NACL 0.9% 1,000 ML IV ONE (15:45)
[2023-05-20] MEDS ORDERED: ONDANSETRON 4 MG/2 ML VIAL IVP ONE (15:45)
[2023-05-20] MEDS ORDERED: ACETAMINOPHEN EXTRA STRENGTH 500 MG TAB PO SCH (15:47)
[2023-05-20 16:03] LABS: BASOPHILS % (AUTO) 0.7 % (0.0-2.0); EOSINOPHILS % (AUTO) 0.4 % (0.0-4.0); HEMATOCRIT 50.5 % (36-52); HEMOGLOBIN 17.3 g/dL (12.0-18.0); LYMPHOCYTES # (AUTO) 1.6 K/uL (2.0-11.5); LYMPHOCYTES % (AUTO) 25.2 % (20.5-51.1); MEAN CORPUSCULAR HEMOGLOBIN 32 pg (27-31); MEAN CORPUSCULAR HGB CONC 34 g/dL (33-37); MEAN CORPUSCULAR VOLUME 93.2 fL (80-94); MONOCYTES # (AUTO) 1.3 K/uL (0.8-1.0); MONOCYTES % (AUTO) 21.3 % (1.7-9.3); NEUTROPHILS # (AUTO) 3.3 K/uL (1.8-7.7); NEUTROPHILS % (AUTO) 52.4 % (42.2-75.2); PLATELET COUNT (AUTO) 308 K/uL (140-450); RED BLOOD CELL COUNT(AUTO) 5.41 MIL/uL (4.20-6.10); RED CELL DISTRIBUTION WIDTH 13.2 % (11.6-13.7); WHITE BLOOD COUNT (AUTO) 6.2 K/uL (4.8-10.8)
[2023-05-20 16:18] LABS: ALBUMIN 4.5 g/dL (3.4-5.0); ANION GAP 12.7 (8-16); CALCIUM 9.9 mg/dL (8.5-10.1); CARBON DIOXIDE 28.3 mmol/L (21-32); CREATININE 1.4 mg/dL (0.6-1.3); TOTAL BILIRUBIN 0.6 mg/dL (0.0-1.0); TOTAL PROTEIN, SERUM 9.2 g/dL (6.4-8.2)
[2023-05-20] MEDS ORDERED: KETOROLAC 30 MG/ML VIAL IVP SCH (16:30)
[2023-05-20] MEDS ORDERED: IBUP-2213 PO (17:25)
[2023-05-20] MEDS ORDERED: PROM118S5 PO (17:25)
[2023-05-20] MEDS ORDERED: ONDA-188 PO (17:25)
[2023-05-20] MEDS ORDERED: LIB25 PO (17:25)
[2023-05-20 18:05] VITALS: BP 142/102; PULSE 118; RESP 20; TEMP 97.1; O2SAT 100
== END 2023-05-20 18:07 | disposition home or self-care (01) ==
LOC: MED 14:11
DX: B34.9 Viral infection, unspecified (principal); Z20.822 Contact with and (suspected) exposure to COVID-19; E86.0 Dehydration; F10.239 Alcohol dependence with withdrawal, unspecified; Y90.9 Presence of alcohol in blood, level not specified
CPT/HCPCS: 36415; 80053; 85025; 87426; 87804; 96361; 96374; 96375; 99284; J1885; J2405; J7030

== ENCOUNTER 2023-08-04 19:45 | Emergency (ER) | payer OTHER ==
[~2023-08-04] VITALS: Ht 180.3 cm; Wt 83.9 kg
[~2023-08-04 19:45] MED LIST changes: +CHLO-836 PO; -LIB25 PO; +ONDA-188 PO; +PROM118S5 PO
[2023-08-04 19:48] VITALS: BP 159/91; PULSE 96; RESP 16; TEMP 98.3; O2SAT 99
[2023-08-04] MEDS ORDERED: IBUP-2213 PO (21:21)
[2023-08-04] MEDS ORDERED: PRED20TA5 PO (21:21)
[2023-08-04] MEDS: KETOROLAC 60 MG/2 ML VIAL IM ONE (21:34)
== END 2023-08-04 21:33 | disposition home or self-care (01) ==
LOC: MED 19:45
DX: J02.9 Acute pharyngitis, unspecified (principal); F17.200 Nicotine dependence, unspecified, uncomplicated; Z72.89 Other problems related to lifestyle; Z79.899 Other long term (current) drug therapy
CPT/HCPCS: 96372; 99283; J1885